=== PATIENT | female | born 1960 | race Caucasian/White ===

== ENCOUNTER → 2017-03-10 | Outpatient (CLI) | payer OTHER ==
[~2017-03-10] MED LIST: ALBU90AE INH; CALCIUM PO; CHOL100015 PO; FLUTICASONE INH; LEVO75TA5 PO; MONT10TA9 PO; MULT-516 PO; NAPR220T29 PO; TRAM50TA2 PO
[2017-03-10 09:09] LABS: PATH.CAST-FLAG NOT PRESENT; SPERM-FLAG NOT PRESENT; SRC-FLAG NOT PRESENT; XTAL-FLAG NOT PRESENT; YLC-FLAG NOT PRESENT
[2017-03-10 09:17] LABS: ASPARTATE AMINO TRANSFERASE 22 U/L (15-37); BLOOD UREA NITROGEN 16 mg/dL (7-18)
== END | disposition home or self-care (01) ==
LOC: STAR 07:56
PROVIDERS: ATTEND Orthopaedic Surgery
DX: Z01.818 Encounter for other preprocedural examination (principal); M16.12 Unilateral primary osteoarthritis, left hip; M87.852 Other osteonecrosis, left femur; R82.99 Other abnormal findings in urine
CPT/HCPCS: 36415; 80053; 81001; 85025; 87081; 87086; 87147; 93005

== ENCOUNTER 2017-03-24 05:25 | Inpatient (IN) | payer OTHER ==
[~2017-03-24] VITALS: Ht 162.6 cm; Wt 66.2 kg
[2017-03-24] MEDS ORDERED: VANCOMYCIN PER PHARMACY MC STA (05:45)
[2017-03-24 05:59] VITALS: BP 111/73
[2017-03-24] MEDS ORDERED: VANCOMYCIN PMX 1GM/200ML 200 ML IV ONE (06:00)
[2017-03-24] MEDS ORDERED: LACTATED RINGERS 1,000 ML IV SCH (06:03)
[2017-03-24] MEDS ORDERED: MIDAZOLAM 1 MG/ML, 2ML ONE (07:03)
[2017-03-24] MEDS ORDERED: FENTANYL PF 250 MCG/5ML ONE (07:03)
[2017-03-24] MEDS ORDERED: KETOROLAC 60 MG/2 ML ONE (07:04)
[2017-03-24] MEDS ORDERED: NEOSPORIN OINT, 15GM ONE (07:05)
[2017-03-24] MEDS ORDERED: SODIUM CHLORIDE 0.9% 50 ML ONE (07:05)
[2017-03-24] MEDS ORDERED: ROPIvacaine/PF 0.2%, 20 ML ONE (07:05)
[2017-03-24] MEDS ORDERED: morphine SULFATE/PF 1 MG/ML, 10ML ONE (07:05)
[2017-03-24] MEDS ORDERED: EPINEPHRINE 1 MG/ML, 1ML ONE (07:05)
[2017-03-24] MEDS ORDERED: DIPHENHYDRAMINE 50 MG/ML, 1ML ONE ×2 (07:19)
[2017-03-24] MEDS ORDERED: PHENYLEPHRINE 10 MG/ML ONE (07:34)
[2017-03-24] MEDS ORDERED: CEFAZOLIN 1,000 MG ONE (07:34)
[2017-03-24] MEDS ORDERED: GLYCOPYRROLATE 0.2MG/1ML ONE (07:34)
[2017-03-24] MEDS ORDERED: NEOSTIGMINE 1 MG/ML, 10ML ONE (07:34)
[2017-03-24] MEDS ORDERED: PROPOFOL 10 MG/ML, 20ML ONE (07:34)
[2017-03-24] MEDS ORDERED: DEXAMETHASONE 4 MG/ML, 1ML ONE (07:34)
[2017-03-24] MEDS ORDERED: ROCURONIUM 10 MG/ML ONE (07:34)
[2017-03-24] MEDS ORDERED: SUCCINYLCHOLINE 20 MG/ML, 10ML ONE (07:34)
[2017-03-24] MEDS ORDERED: ONDANSETRON 2MG/ML, 2ML ONE (07:34)
[2017-03-24] MEDS ORDERED: TRANEXAMIC ACID 100 MG/ML, 10ML ONE (07:49)
[2017-03-24] MEDS ORDERED: LABETALOL 5MG/ML, 20ML IV PRN (08:00)
[2017-03-24] MEDS ORDERED: EPHEDRINE 50 MG/ML, 1ML IVPush PRN (08:00)
[2017-03-24] MEDS ORDERED: PROMETHAZINE 25 MG/ML, 1ML IV PRN (08:00)
[2017-03-24] MEDS ORDERED: MIDAZOLAM 1 MG/ML, 2ML IV PRN (08:00)
[2017-03-24] MEDS ORDERED: ONDANSETRON 2MG/ML, 2ML IVPush PRN ×3 (08:00→15:30)
[2017-03-24] MEDS ORDERED: HYDROcodone/APAP 7.5-325MG/15ML UDC PO PRN ×2 (08:00→11:30)
[2017-03-24] MEDS ORDERED: ACETAMINOPHEN 325 MG TABLET PO PRN (08:00)
[2017-03-24] MEDS ORDERED: MEPERIDINE/PF 25MG/0.5ML IVPush PRN (08:00)
[2017-03-24] MEDS ORDERED: hydrALAzine 20 MG/ML, 1ML IV PRN (08:00)
[2017-03-24] MEDS ORDERED: ACETAMINOPHEN 650 MG/20.3 ML UDC ONE (09:17)
[2017-03-24] MEDS ORDERED: HYDROmorphone 2 MG/ML, 1ML ONE (09:17)
[2017-03-24] MEDS ORDERED: FENTANYL PF 100 MCG/2ML ONE ×2 (09:17→10:03)
[2017-03-24] MEDS ORDERED: ACETAMINOPHEN 325 MG/10.15 ML UDC ONE (09:17)
[2017-03-24] MEDS ORDERED: OXYcodone 5 MG/5 ML ORAL.SOL UDC ONE ×2 (09:17→09:49)
[2017-03-24] MEDS: HYDROmorphone 1 MG/ML, 1ML IV PRN ×5 (09:20→09:57)
[2017-03-24] MEDS: OXYcodone 5 MG/5 ML ORAL.SOL UDC PO PRN ×2 (09:20→09:45)
[2017-03-24] MEDS: FENTANYL PF 100 MCG/2ML IV PRN ×4 (09:22→10:23)
[2017-03-24] MEDS ORDERED: HYDROmorphone 2MG TABLET PO PRN (11:30)
[2017-03-24] MEDS ORDERED: LORazepam 2 MG/ML, 1ML IV PRN (11:30)
[2017-03-24] MEDS ORDERED: ALUMINUM/MAG/SIMETHICONE 30 ML UDC PO PRN (11:30)
[2017-03-24] MEDS ORDERED: MAGNESIUM HYDROXIDE 8%, 30ML UDC PO PRN (11:30)
[2017-03-24] MEDS ORDERED: PROAIR INH PRN (11:30)
[2017-03-24] MEDS ORDERED: SENNA/DOCUSATE TABLET PO PRN (11:30)
[2017-03-24] MEDS ORDERED: LORazepam 1MG TABLET PO PRN (11:30)
[2017-03-24] MEDS ORDERED: POTASSIUM CHLORIDE 10 MEQ in D5%-0.45% NACL 1,000 ML IV SCH (11:30)
[2017-03-24] MEDS ORDERED: DIPHENHYDRAMINE 25 MG CAPSULE PO PRN (11:30)
[2017-03-24] MEDS ORDERED: BISACODYL 10 MG SUPP PR PRN (11:30)
[2017-03-24] MEDS: POTASSIUM CHLORIDE 10 MEQ in D5%-0.45% NACL 1,000 ML IV SCH (12:59)
[2017-03-24] MEDS: CEFAZOLIN PMX 1GM/50ML 50 ML IVPB SCH ×2 (15:34→23:36)
[2017-03-24] MEDS: OXYcodone IR 5MG TABLET PO PRN ×2 (15:54→20:22)
[2017-03-24] MEDS: ACETAMINOPHEN 325 MG TABLET PO PRN (18:05)
[2017-03-24] MEDS ORDERED: VANCOMYCIN PMX 1GM/200ML 200 ML IVPB ONE (18:30)
[2017-03-24 19:01] VITALS: BP 108/67
[2017-03-24] MEDS: DOCUSATE 100 MG CAPSULE PO SCH (21:38)
[2017-03-25 00:05] VITALS: BP 96/60
[2017-03-25] MEDS: OXYcodone IR 5MG TABLET PO PRN ×6 (01:28→22:08)
[2017-03-25 03:32] VITALS: BP 102/64
[2017-03-25] MEDS: LEVOTHYROXINE 75 MCG TABLET PO SCH (05:54)
[2017-03-25] MEDS: ENOXAPARIN 30 MG/0.3 ML SQ SCH ×2 (05:54→17:48)
[2017-03-25] MEDS: POTASSIUM CHLORIDE 10 MEQ in D5%-0.45% NACL 1,000 ML IV SCH (07:36)
[2017-03-25 08:05] VITALS: BP 91/50
[2017-03-25] MEDS: MULTIVITAMINS/MINERALS TABLET PO SCH (09:36)
[2017-03-25] MEDS: DOCUSATE 100 MG CAPSULE PO SCH ×2 (09:36→20:28)
[2017-03-25] MEDS: KETOROLAC 30 MG/1 ML IV SCH ×2 (11:41→20:28)
[2017-03-25 15:50] VITALS: BP 96/56
[2017-03-25] MEDS: CYCLOBENZAPRINE 10 MG TABLET PO PRN (17:48)
[2017-03-25 19:02] VITALS: BP 99/62
[2017-03-25] MEDS: ACETAMINOPHEN 325 MG TABLET PO PRN (20:28)
[2017-03-25] MEDS ORDERED: OXYC-229 PO (23:14)
[2017-03-25] MEDS ORDERED: ASPI-647 PO (23:17)
[2017-03-25] MEDS ORDERED: DIAZ10TA PO (23:18)
[2017-03-26 02:07] VITALS: BP 97/62
[2017-03-26] MEDS: POTASSIUM CHLORIDE 10 MEQ in D5%-0.45% NACL 1,000 ML IV SCH (03:23)
[2017-03-26] MEDS: KETOROLAC 30 MG/1 ML IV SCH (03:23)
[2017-03-26] MEDS: LEVOTHYROXINE 75 MCG TABLET PO SCH (05:30)
[2017-03-26] MEDS: ENOXAPARIN 30 MG/0.3 ML SQ SCH (05:30)
[2017-03-26 06:45] VITALS: BP 98/64
[2017-03-26] MEDS: CYCLOBENZAPRINE 10 MG TABLET PO PRN (08:28)
[2017-03-26] MEDS: DOCUSATE 100 MG CAPSULE PO SCH (08:28)
[2017-03-26] MEDS: OXYcodone IR 5MG TABLET PO PRN (08:28)
[2017-03-26] MEDS: MULTIVITAMINS/MINERALS TABLET PO SCH (08:29)
[2017-03-26 10:00] VITALS: BP 99/63
== END 2017-03-26 10:50 | disposition home or self-care (01) | DRG 470 ==
LOC: UNDOADMIN 05:25 → EDIP 05:25 → ORIP 05:34 → 4NOR 10:55 → DCLOUNGE 03-26 10:12
PROVIDERS: ADMIT Orthopaedic Surgery; ATTEND Orthopaedic Surgery
PROC: 0SRB02A Replacement of Left Hip Joint with Metal on Polyethylene Synthetic Substitute, Uncemented, Open Approach (ICD-10-PCS; principal; 2017-03-24 07:30)
DX: M16.12 Unilateral primary osteoarthritis, left hip (principal); J45.20 Mild intermittent asthma, uncomplicated; Z82.5 Family history of asthma and other chronic lower respiratory diseases; Z87.891 Personal history of nicotine dependence; Z79.899 Other long term (current) drug therapy; Z82.61 Family history of arthritis
CPT/HCPCS: 36415; 72170; 86850; 86900; C1713; J0171; J0690; J1100; J1170; J1650; J1885; J2250; J2274; J2405; J2704; J2710; J2795; J3010; J3370; J3480; J3490; C1776; J0330; J1200; J2370; J7120; Q0163

== ENCOUNTER 2017-05-03 12:59 | Emergency (ER) | payer OTHER ==
[~2017-05-03] VITALS: Ht 162.6 cm; Wt 56.8 kg
[~2017-05-03 12:59] MED LIST changes: +ASPI-647 PO; +DIAZ10TA PO; +NAPR-816 PO; -NAPR220T29 PO; +OXYC-307 PO
[2017-05-03 13:02] VITALS: BP 148/86
== END 2017-05-03 14:55 | disposition home or self-care (01) ==
LOC: ED 13:24
DX: M25.561 Pain in right knee (principal); Z96.642 Presence of left artificial hip joint
CPT/HCPCS: 29505

== ENCOUNTER → 2020-08-09 | Outpatient (CLI) | payer OTHER ==
[~2020-08-09] MED LIST changes: -MONT10TA9 PO; +MONT10TA96 PO
== END | disposition home or self-care (01) ==
LOC: RAD 10:59
PROVIDERS: ATTEND Orthopaedic Surgery
DX: M25.552 Pain in left hip (principal); Z96.642 Presence of left artificial hip joint
CPT/HCPCS: 78315; A9503